=== PATIENT | female | born 1960 | race Caucasian/White ===

== ENCOUNTER 2019-02-14 07:06 | Day surgery (SDC) | payer OTHER ==
[2019-02-14] MEDS ORDERED: LIDOCAINE 4% SOLUTION 50 ML BTL (08:45)
[2019-02-14] MEDS ORDERED: FENTAnyl 50 MCG/ML VIAL (09:27)
[2019-02-14] MEDS ORDERED: MIDAZOLAM 1 MG/ML 2 ML INJ ×2 (09:27)
== END 2019-02-14 12:59 | disposition home or self-care (01) ==
LOC: GIL 07:06
DX: Z12.11 Encounter for screening for malignant neoplasm of colon (principal); K29.50 Unspecified chronic gastritis without bleeding; D12.5 Benign neoplasm of sigmoid colon; K64.4 Residual hemorrhoidal skin tags; E11.9 Type 2 diabetes mellitus without complications
CPT/HCPCS: 43239; 82962; 88305; 88312